=== PATIENT | female | born 1985 | race African-American/Black ===

== ENCOUNTER 2017-01-22 17:28 | Emergency (ER) | payer SELFPAY ==
[2017-01-22 19:22] LABS: Bilirubin Negative (Negative); Blood, Urine Negative (Negative); Glucose, Urine (Dipstick) Negative (Negative); Ketone, Urine Negative (Negative); Nitrite Negative (Negative); Protein, Urine (Dipstick) Negative (Neg-Trace)
[2017-01-22 19:26] LABS: #Basophils 0.2 thou/uL (0.0-0.2); #Eosinphils 0.5 thou/uL (0.0-0.7); #Lymphocytes 3.4 thou/uL (1.20-3.40); #Monocytes 0.4 thou/uL (0.11-0.59); #Neutrophils 3.3 thou/uL (1.40-6.50); %Eosinophils 5.9 % (0.0-10.0); %Lymphocytes 43.9 % (21.0-51.0); %Monocytes 5.2 % (0.0-10.0); Hematocrit 43.5 % (36.0-47.0); Mean Platelet Volume 9.5 fL (7.4-10.4); Red Blood Cell (RBC) Count 4.98 mill/uL (4.20-5.40); White Blood Cell (WBC) Count 7.7 thou/uL (4.8-10.8)
[2017-01-22 19:31] LABS: Amphetamine Not Detected (NotDetected); Methadone Not Detected (NotDetected); Methamphetamine Not Detected (NotDetected)
[2017-01-22 19:48] LABS: ALT (SGPT) Less than 7 U/L (8-55); AST (SGOT) 12 U/L (5-34); Alkaline Phosphatase 55 U/L (40-150); Anion Gap 13 mmol/L (10-20); BUN (Urea Nitrogen) 6 mg/dL (7.0-18.7); Bilirubin, Total 0.8 mg/dL (0.2-1.2); Calc. Creatinine Clearance 0 mL/min (70-130); Calcium 9.1 mg/dL (7.8-10.44); Carbon Dioxide 23 mmol/L (22-29); Chloride 108 mmol/L (98-107); Estimated GFR-MDRD 87; Globulin 3.7 g/dL (2.4-3.5); Protein, Total 8.1 g/dL (6.0-8.3)
[2017-01-22 19:50] LABS: Acetaminophen Less than 6.0 mcg/mL (10.0-30.0); Salicylate Less than 8.0 mg/dL (15.0-30.0)
[2017-01-23] MEDS ORDERED: Ondansetron ODT 4 MG TAB ONE (00:13)
[2017-01-23] MEDS ORDERED: Acetaminophen 325 MG TAB ONE ×2 (02:12→15:27)
--- NOTE | 2017-03-11 15:00 | EKG ---
Test Reason : Blood Pressure : / mmHG Vent. Rate : 105 BPM Atrial Rate : 105 BPM P-R Int : 146 ms QRS Dur : 080 ms QT Int : 340 ms P-R-T Axes : 068 -01 023 degrees QTc Int : 449 ms Sinus tachycardia Otherwise normal ECG Confirmed by AARON ALVARADO, ANNI Mansfield ([id number]), order editor JOSE MATTHEW ([id number]) on 03/11/2017 2:59:46 PM Referred By: Confirmed By:ANNI WALKER MD
== END 2017-01-24 03:37 ==
LOC: ERS 17:28
DX: R45.851 Suicidal ideations (principal); R45.850 Homicidal ideations; F31.9 Bipolar disorder, unspecified; F17.210 Nicotine dependence, cigarettes, uncomplicated
CPT/HCPCS: 36415; 80053; 80306; 80307; 81003; 81025; 84443; 85025; 93005; Q0162

== ENCOUNTER 2017-12-25 11:34 | Emergency (ER) | payer MEDICAID, SELFPAY ==
[2017-12-25] MEDS ORDERED: Ondansetron ODT 8 MG TAB ONE (12:11)
[2017-12-25] MEDS ORDERED: Ondansetron ODT 4 MG TAB ONE (12:11)
[2017-12-25] MEDS ORDERED: cefTRIAXone\\ROCEPHIN 250 MG VIAL ONE (12:34)
[2017-12-25] MEDS ORDERED: Azithromycin 250 MG TAB ONE (12:34)
[2017-12-25] MEDS ORDERED: Lidocaine 1% (PF) 30 ML VIAL ONE (12:34)
[2017-12-25 12:46] LABS: Bilirubin Negative (Negative); Blood, Urine Negative (Negative); Clarity CLEAR (Clear); Glucose, Urine (Dipstick) Negative (Negative); Leukocyte Negative (Negative); Nitrite Negative (Negative); Protein, Urine (Dipstick) Negative (Neg-Trace); Specific Gravity, Urine 1.013 (1.002-1.036); Urobilinogen 0.2 mg/dL (0.2-1.0); pH, Urine 6.5 (5.0-9.0)
[2017-12-25 12:48] LABS: Pregnancy Test - Urine (BHCG) Negative (Negative); Pregu Control Background? CLEAR/WHITE (CLR/WHITE); Pregu Control Bar Appear? YES (CONTROL BAR); Specific Gravity 1.013 (1.002-1.036)
[2017-12-26 21:57] LABS: Chlamydia by PCR Not Detected (NotDetected); GC by PCR Not Detected (NotDetected)
== END 2017-12-25 13:09 | disposition home or self-care (01) ==
LOC: ERS 11:34
DX: T19.2XXA Foreign body in vulva and vagina, initial encounter (principal); N72 Inflammatory disease of cervix uteri; F17.210 Nicotine dependence, cigarettes, uncomplicated; F20.9 Schizophrenia, unspecified; F31.9 Bipolar disorder, unspecified; Z71.6 Tobacco abuse counseling
CPT/HCPCS: 81003; 81025; 87480; 87491; 87510; 87591; 87660; 96372; J0696; J2001; Q0162

== ENCOUNTER 2018-08-07 20:42 | Emergency (ER) | payer MEDICAID, SELFPAY ==
[2018-08-07] MEDS ORDERED: Acetaminophen 500 MG TAB ONE (20:53)
--- NOTE | 2018-08-07 21:41 | RAD ---
4 views left knee. HISTORY: Fall 2 months ago with left knee pain. AP, lateral and both oblique views left knee obtained. No evidence of fractures, subluxations or bony lesion seen. IMPRESSION: Normal 4 views left knee.
== END 2018-08-07 22:24 | disposition home or self-care (01) ==
LOC: ERS 20:42
DX: O99.89 Other specified diseases and conditions complicating pregnancy, childbirth and the puerperium (principal); M25.562 Pain in left knee; O99.331 Smoking (tobacco) complicating pregnancy, first trimester; F17.210 Nicotine dependence, cigarettes, uncomplicated

== ENCOUNTER 2018-09-28 22:46 | Emergency (ER) | payer MEDICAID, OTHER ==
[2018-09-29] MEDS ORDERED: Acetaminophen/Codeine 30-300mg Tablet PO PRN (02:24)
[2018-09-29] MEDS ORDERED: hydrALAZINE 20 MG/ML VIAL SLOW IVP PRN (02:35)
[2018-09-29] MEDS ORDERED: Acetaminophen/Codeine 30-300mg Tablet PO SCH (02:45)
== END 2018-09-28 23:23 | disposition home or self-care (01) ==
LOC: ERS 22:46
DX: O99.89 Other specified diseases and conditions complicating pregnancy, childbirth and the puerperium (principal); R60.0 Localized edema; O99.342 Other mental disorders complicating pregnancy, second trimester; F31.9 Bipolar disorder, unspecified; F20.9 Schizophrenia, unspecified; Z87.891 Personal history of nicotine dependence
CPT/HCPCS: 99283

== ENCOUNTER 2018-09-28 23:31 | Day surgery (SDC) | payer MEDICAID, OTHER ==
[2018-09-29 00:17] VITALS: BP 109/67; TEMP 97.9; BMI 31.8
[2018-09-29] MEDS ORDERED: Lidocaine Viscous Sol 2% 15 ml UD Cup SSP SCH (01:30)
[2018-09-29] MEDS ORDERED: hydrALAZINE 20 MG/ML VIAL SLOW IVP PRN (01:36)
[2018-09-29] MEDS ORDERED: Acetaminophen/Codeine 30-300mg Tablet PO SCH (02:00)
--- NOTE | 2018-09-29 03:32 | PDOC.FPRHP ---
- History of Present Illness Chief Complaint: Facial Pain, Feet Swelling History of Present Illness: The patient is a 33 y/o who is 24W by 1st trimester US who presents to the ED with a 3 day history of right-sided facial pain and a 1 month history of bilateral feet swelling. The patient states that the nature of her facial pain is difficult to describe, is a 10/10, is associated with chewing , does not radiate, is mildly relieved with ibuprofen, and is sporadic in nature. She admits that she has poor dentition and occasional malodorous breath , and that she has not seen a dentist for some time. The patient went on to state that her feet have been swollen with her previous pregnancies, but she believes that they are more swollen than normal and she thinks that they have been tingling at times. Her work requires her to stand for long periods at a time, and she admits that she is unable to elevate her feet periodically or wear compression stockings. The patient denies absent movement, vaginal bleeding or discharge, recent trauma, chest pain, fever, vomiting, vision changes, dysuria, and weight loss. - Allergies/Adverse Reactions Allergies Allergy/AdvReac Type Severity Reaction Status Date / Time No Known Drug Allergies Allergy Verified 09/29/18 00:04 - Home Medications Medication Instructions Recorded Confirmed Type Acetaminophen With Codeine 1 tablet PO Q6HR PRN #10 tablet 09/29/18 Rx [Tylenol with Codeine #3] Doxylamine Succinate/Vit B6 2 tablet PO HS 09/29/18 09/29/18 History [Jessee KENNEDY] Haloperidol Lactate [Haldol] 0.5 mg PO BID 09/29/18 09/29/18 History Mirtazapine 1 tab PO DAILY PRN 09/29/18 09/29/18 History Pnv73/Iron,Gluc/Folic/Dss/Dha 1 tab PO DAILY 09/29/18 09/29/18 History [Citranatal Assure Combo Pack] - History PMHx: Bipolar Disorder (Type Unspecified), Depression, Schizophrenia, Abnormal Pap Smears, and Hepatitis C PSHx: None FHx: Father (DM, Depression, PTSD) Social: The patient admits to a remote history of EtOH and IV drug abuse, but denies any recent EtOH, tobacco or drug abuse during this . - Review of Systems General: denies: fever/chills, weight/appetite/sleep changes, night sweats Eyes: denies: vision changes Respiratory: denies: cough, shortness of breath Cardiovascular: denies: chest pain Gastrointestinal: denies: vomiting, diarrhea, GI bleeding Genitourinary: denies: dysuria Musculoskeletal: reports: pain, swelling Neurological: denies: syncope, seizure Psychological: reports: depression - Vital signs BP: [113/56] HR: [92] RR: [17] Tmax: [] Pox: [100]% on [Room] Wt: [] - Physical Exam Constitutional: NAD, awake, alert and oriented, well developed HEENT: normocephalic and atraumatic, conjunctiva clear, no scleral icterus, grossly normal vision, grossly normal hearing, MMM, other (Poor dentition, no abscesses visible, broken upper, posterior molar) Neck: supple, FROM, trachea midline, no LAD, no thyromegaly Chest: no-tender to palpation, no lesions Heart: RRR, normal S1/S2, no murmurs/rubs/gallops, pulses present Lungs: CTAB, no respiratory distress, good air movement, no rales/rhonchi, no wheezing, no retractions -Abdomen: Abdomen size consistent with 24W . Musculoskeletal: normal structure, ROM grossly normal Neurological: no focal deficit, CN II-XII intact Skin: no jaundice Psychiatric: other (Flat affect) FMR H&P: A/P - Problem List (1) Intrauterine Status: Chronic Code(s): Z34.90 - ENCNTR FOR SUPRVSN OF NORMAL , UNSP , UNSP TRIMESTER (2) Facial pain Status: Acute (3) Bilateral swelling of feet Status: Chronic Code(s): M79.89 - OTHER SPECIFIED SOFT TISSUE DISORDERS - Plan 1. Intrauterine - heart tones in 140s, with moderate variability, no decelerations (Cat 1) -F/U with PNC, continue standard care -Schedule 2nd trimester US -Refrain from additional doses of ibuprofen 2. Right-Sided Facial Pain -Pain likely associated with cracked tooth, 2/2 to poor dentition -Tylenol #3 now, with Lidocaine SSP/SSW -Tylenol #3 1 tab PO Q6H for pain -F/U with dentist (appointment schedule for 10/04/18) -Tooth extraction likely required 3. Bilateral Foot Swelling -Sub-acute changes to feet, BP WNL, no changes to vision or new-onset WEINSTEIN -No obvious loss of function or gross neuropathy -Pre-Eclampsia unlikely -Recommend elevating feet periodically -Compression stocking FMR H&P: Upper Level - Plan Date/Time: 09/29/18 0915 I, [], have evaluated this patient and agree with findings/plan as outlined by manager internship resident. Pertinent changes/additions are listed here. Addendum - Attending - Attending Attestation Date/Time: 10/03/18 2625 I personally evaluated the patient and discussed the management with Dr. Dumont I agree with the History, Examination, Assessment and Plan documented above with any addition or exceptions noted below. Vital signs with in normal limits. No facial swelling/reddness. Pt has appt already in place with dentist. Will adress pain with tylenol 3 and topical lidocaine. PT on feet working during day. Pt counselled to use compression stockings to help improve swelling. Pt to f/u with PNC as scheduled.
== END 2018-09-29 02:35 | disposition home or self-care (01) ==
LOC: L&D/OP 23:31
PROVIDERS: ATTEND Obstetrics & Gynecology
DX: O99.89 Other specified diseases and conditions complicating pregnancy, childbirth and the puerperium (principal); R51 Headache; M79.89 Other specified soft tissue disorders; O99.342 Other mental disorders complicating pregnancy, second trimester; F32.9 Major depressive disorder, single episode, unspecified; F20.9 Schizophrenia, unspecified; Z3A.24 24 weeks gestation of pregnancy
CPT/HCPCS: 99282

== ENCOUNTER 2019-01-15 10:46 | Day surgery (SDC) | payer OTHER ==
[2019-01-15 11:27] VITALS: BMI 37.5
[2019-01-15 11:44] LABS: Amnisure Internal Control QC ACCEPTABLE (ACCEPTABLE)
[2019-01-15 11:52] LABS: Amnisure Test No Membranes Rupture (No Rupture)
[2019-01-15] MEDS ORDERED: hydrALAZINE 20 MG/ML VIAL SLOW IVP PRN (12:20)
--- NOTE | 2019-01-15 13:27 | PRG ---
DATE OF SERVICE: 01/15/2019 PRIMARY OB: Clinic. CHIEF COMPLAINT: Leakage of fluid. HISTORY OF PRESENT ILLNESS: The patient is a 33-year-old, G11, P7 female with an intrauterine at 36 weeks and 6 days, presenting to Labor and Delivery after experiencing some leakage of fluid. We will try and put her clothes on for work this morning. She says that she has not had any leaking since. Denies any contractions or vaginal bleeding. She denies any complications with this . The patient missed her last appointment at the clinic at the end of December. The patient denies any recent illness, fever, fall, headache, chest pain, shortness of breath, nausea, vomiting, diarrhea, constipation, any new rashes. She has had some hip pains from the . Denies any back pain. Denies any vaginal bleeding or change in her discharge. Denies any urinary urgency or frequency. PAST MEDICAL HISTORY: Includes bipolar disorder, depression, and hepatitis C. PAST SURGICAL HISTORY: She has had surgery on her left hand and she has had 2 elective abortions. ALLERGIES: NO KNOWN DRUG ALLERGIES. MEDICATIONS: 1. vitamins. 2. Haloperidol. 3. Mirtazapine. SOCIAL HISTORY: Denies drug, alcohol, or tobacco use. ALLERGIES: NO KNOWN DRUG ALLERGIES. OB LABS: GC and chlamydia were negative in August. Hepatitis B surface antigen negative in August. RPR negative in August. Blood type is O positive. Antibody screen is negative. Hepatitis C antibody reactive. HIV nonreactive in August. Hepatitis C RNA is nondetectable. REVIEW OF SYSTEMS: Per HPI. PHYSICAL EXAMINATION: VITAL SIGNS: Blood pressure is 102/54, pulse rate of 93, respiratory rate of 16 , and temperature 98.6. GENERAL: She appears to be in no acute distress. She is alert, oriented, cooperative, and pleasant to interact with. HEAD: Normocephalic and atraumatic. LUNGS: Clear to auscultation bilaterally. HEART: Has a regular rate and rhythm. ABDOMEN: Gravid and nontender. EXTREMITIES: Nontender and nonedematous. : Vulva without masses, lesions, or erythema. Vagina is moist. There is no visible pulling on speculum exam. Cervix was closed on digital exam. heart tracing shows a fetus at baseline in the 150s with moderate long- term variability, positive 15 x 15 accelerations, no decelerations. No contractions visible on the monitor. AmniSure test is negative. ASSESSMENT AND PLAN: The patient is a 33-year-old grand-multiparous female with an intrauterine at 36 weeks and 6 days with no evidence of rupture of membranes or labor at this time. The patient has been given labor precautions, has been counseled to make a followup appointment with clinic as soon as possible and to remind them that she needs her GBS test done. Job ID: [id number] [facility]
[2019-01-16] MEDS ORDERED: FLU VACC QS2019-20(6MOS UP)/PF 60 MCG/0.5 ML SYRINGE IM ONE (11:45)
== END 2019-01-15 12:28 | disposition home or self-care (01) ==
LOC: L&D/OP 10:46
PROVIDERS: ATTEND Obstetrics & Gynecology
DX: O99.89 Other specified diseases and conditions complicating pregnancy, childbirth and the puerperium (principal); N89.8 Other specified noninflammatory disorders of vagina; O99.343 Other mental disorders complicating pregnancy, third trimester; F32.9 Major depressive disorder, single episode, unspecified; Z3A.36 36 weeks gestation of pregnancy; Z79.899 Other long term (current) drug therapy
CPT/HCPCS: 84112; 99283

== ENCOUNTER 2019-02-06 19:30 | Inpatient (IN) | payer MEDICAID, OTHER ==
[2019-02-07 00:04] VITALS: BMI 36.8
[2019-02-07] MEDS ORDERED: Ondansetron PF 4 MG/2 ML Vial IVP PRN ×3 (00:15→22:55)
[2019-02-07] MEDS ORDERED: Penicillin G Potassium 5 MILL.UNITS in Sodium Chloride 0.9% 100 ML IVPB SCH (00:15)
[2019-02-07] MEDS ORDERED: Lidocaine 1% (PF) 30 ML VIAL SC PRN (00:15)
[2019-02-07] MEDS ORDERED: Promethazine HCl 25 MG/ML VIAL IM PRN (00:15)
[2019-02-07] MEDS ORDERED: hydrALAZINE 20 MG/ML VIAL SLOW IVP PRN ×2 (00:15→22:55)
[2019-02-07] MEDS: Lactated Ringer's 1,000 ML IV SCH ×4 (00:53→20:00)
[2019-02-07 01:05] LABS: Mean Corpuscular HGB CONC 35.5 g/dL (32.0-36.0); Mean Corpuscular Hemoglobin 29.9 pg (27.0-31.0); Mean Corpuscular Volume 84.1 fL (78.0-98.0); Mean Platelet Volume 9.5 fL (7.4-10.4); Platelet Count 198 thou/uL (130-400); RBC Distribution Width 12.5 % (11.5-14.5); Red Blood Cell (RBC) Count 3.69 mill/uL (4.20-5.40); White Blood Cell (WBC) Count 9.3 thou/uL (4.8-10.8)
--- NOTE | 2019-02-07 02:08 | PDOC.FPROB ---
FMR OB H&P: Medications - Current Home Medications: Medication Instructions Recorded Confirmed Type Haloperidol Lactate [Haldol] 0.5 mg PO BID 09/29/18 02/06/19 History Mirtazapine 1 tab PO DAILY PRN 09/29/18 02/06/19 History Pnv73/Iron,Gluc/Folic/Dss/Dha 1 tab PO DAILY 09/29/18 02/06/19 History [Citranatal Assure Combo Pack] Allergies/Adverse Reactions: Allergies Allergy/AdvReac Type Severity Reaction Status Date / Time No Known Drug Allergies Allergy Verified 02/06/19 23:54 FMR OB H&P: Vital Signs - Maternal Vital signs: Vital Signs - First Documented Temp Pulse Resp BP 98.1 F 88 18 108/68 02/06/19 23:52 02/06/19 23:52 02/06/19 23:52 02/06/19 23:52 FMR OB H&P: Results - Labs Lab results: Laboratory Results - last 24 hr 02/07/19 02/07/19 02/07/19 00:30 00:30 01:46 WBC 9.3 RBC 3.69 L Hgb 11.0 L Hct 31.1 L MCV 84.1 MCH 29.9 MCHC 35.5 RDW 12.5 Plt Count 198 MPV 9.5 Blood Type O POSITIVE O POSITIVE Antibody Screen NEGATIVE FMR OB H&P: A/P - Problem List (1) Hepatitis C Current Visit: Yes Status: Acute Code(s): B19.20 - UNSPECIFIED VIRAL HEPATITIS C WITHOUT HEPATIC COMA (2) Intrauterine Current Visit: No Status: Chronic Code(s): Z34.90 - ENCNTR FOR SUPRVSN OF NORMAL , UNSP, UNSP TRIMESTER Discussion: Date/Time: 02/07/19206 PCP: Jason KRAMER HPI: Patient comes in for elective term induction. States she has been feeling well as of late. R/B/A of induction discussed and patient is in agreement with plan. Patient states she has had mild brown d/c throughout the course of her and it is unchanged, denies pain, itching, or irritation. She affirms movement, denies cxns, ROM, bleeding. Denies WEINSTEIN, visual changes, SOB, or swelling. History: OB hx: Hep C, social discord, bipolar II depression, sickle trait PMH: as above PSH: L hand Meds: PNV, Haldol, iron , Zofran, mirtazapine All: NKDA Soc Hx: denies smoking, alcohol, drugs Fam Hx: denies downs, congenital defects GBS: positive Blood type: O+ Ab screen: neg HIV: neg RPR: neg Hep B: neg Rubella: immune GC/CT: neg PAP: NILM, HR HPV + REVIEW OF SYSTEMS: Gen: no fever, chills, or sweats Neuro: no numbness/tingling, no weakness, denies headache ENT: denies congestion Eyes: no visual changes Resp: denies cough, no production, no SOB, no wheeze Card: denies chest pain, no palpitations GI: denies nausea, vomiting, diarrhea : no dysuria, no hematuria Skin: no rash, no erythema Psych: denies hx anxiety/depression Vitals: T: 98.3 R: 18 BP: 108/68 P:78 at: 98% on RA PHYSICAL EXAMINATION: General: NAD, alert and oriented x3 HEENT: EOMI, normal sclera Neck: Supple. Full ROM. Heart/Cardiovascular System: RRR, Cap refill < 3 seconds, no rub, no murmur Lungs/Respiratory System: clear to auscultation bilaterally. No increased work of breathing. Room air. Abdomen/Gastro-Intestinal System: no abdominal tenderness, normal bowel sounds, Gravid Extremities: Warm extremities. No cyanosis or edema. Neuro: No gross deficits appreciated Psychiatry: Awake, Alert and cooperative with exam Skin: no lesions, no rashes Musculoskeletal: Full ROM A/P: This is a 33 yo here for elective term induction FHT: 130 baseline, mod variability, no decels, accels present [address]: irregular contractions # Term , Grand multip - GBS+, start penicillin - Initial check - Will plan to start pit in 2 hours to give some time for abx ppx - Plans for epidural # Bipolar II depression - Missed last 2 days Haldol. Denies depression, hallucinations, SI. - Follows with [facility] # Social discord - [facility], now has her own place through [facility] - None of her other children are living with her - Case management consult after delivery # HR HPV - Normal colpo per pt, - Follow up outpt # Hepatitis C - Viral load negative, risks of vertical transmission have been discussed with patient Addendum - Attending - Attending Attestation Date/Time: 02/07/19 3058 I personally evaluated the patient and discussed the management with Dr. Edgar Mederos on 02/06/2019 I agree with the History, Examination, Assessment and Plan documented above with any addition or exceptions noted below - 33 yo @ 40.0 weeks admitted for elective induction. Denies any ctx, LOF, VB; (+) FM. Afebrile VSS SVE 04/07/-3 [address] no ctx. A/P: 1) IUP@ 40.0 weeks GBS(+) - will start abx and in 2 hours start pitocin. 2) Grandmultiparity - monitor closely for PPH.
[2019-02-07 02:24] LABS: HBSAg Index 0.15 S/CO (0-0.99); Hep B Surf Ag Non-Reactive S/CO (NonReactive)
[2019-02-07 03:30] LABS: Syphilis Antibody Index 3.52 S/CO (<1.00 Non-Reactive)
[2019-02-07] MEDS: NS w/ Oxytocin 10 units 500 ML IV SCH ×2 (03:30→15:57)
[2019-02-07] MEDS: Penicillin G 2.5 MILL.units 2.5 MILL.UNITS in Premix Bag 1 BAG IVPB SCH ×4 (04:55→17:38)
--- NOTE | 2019-02-07 06:30 | PDOC.LDPN ---
Labor & Delivery Progress Note - Subjective Subjective: comfortable, painful contractions - Objective Vital signs reviewed and normal: yes General: NAD, resting, breathing through contractions Uterine fundus: non tender SVE: 0600 Dilation: 1 Effacement: 50% Station: -3 FHT: category 1, variability present [place] contractions every: 3-5 minutes - Assessment (1) Elective induction of labor planned Code(s): [id number] - Current Visit: Yes Status: Acute (2) Hepatitis C Code(s): B19.20 - UNSPECIFIED VIRAL HEPATITIS C WITHOUT HEPATIC COMA Current Visit: Yes Status: Acute Plan: continue plan of care, pitocin for augmentation -: Term , Grand multip - GBS+, received PCN ppx - Recheck %/-3 - Pitocin started at 0315 - Continue current plan of care. Consider balloon later this morning if still not progressing. - Plans for epidural See H&P for chronic medical problem management.
[2019-02-07 06:44] LABS: Syphilis Antibody INDETERMINATE (Nonreactive)
--- NOTE | 2019-02-07 08:13 | PDOC.LDPN ---
Labor & Delivery Progress Note - Subjective Subjective: comfortable - Objective Vital signs reviewed and normal: yes General: NAD, resting SVE: 50/-3 FHT: category 1 [place] contractions every: 4min - Assessment (1) Elective induction of labor planned Code(s): [id number] - Current Visit: Yes Status: Acute (2) Intrauterine Code(s): Z34.90 - ENCNTR FOR SUPRVSN OF NORMAL , UNSP, UNSP TRIMESTER Current Visit: No Status: Chronic Plan: continue plan of care, pitocin for augmentation -: Term , Grand multip - GBS+, received PCN ppx - Recheck 50%/-3 - Pitocin started at 0315, currently at 10, continue titrating up - Continue current plan of care. - Plans for epidural - at risk for PPH, will have hemorrhage cart in room at delivery as precaution See H&P for chronic medical problem management.
--- NOTE | 2019-02-07 12:08 | PDOC.LDPN ---
Labor & Delivery Progress Note - Subjective Subjective: comfortable - Objective Vital signs reviewed and normal: yes General: resting Uterine fundus: non tender SVE: 50/-2 FHT: category 1 [place] contractions every: 3-6 min - Assessment (1) Elective induction of labor planned Code(s): [id number] - Current Visit: Yes Status: Acute (2) Intrauterine Code(s): Z34.90 - ENCNTR FOR SUPRVSN OF NORMAL , UNSP, UNSP TRIMESTER Current Visit: No Status: Chronic -: Term , Grand multip - GBS+, received PCN ppx - Recheck %/-2 - Pitocin started at 0315, currently at 18 - Continue current plan of care. - Plans for epidural - at risk for PPH, will have hemorrhage cart in room at delivery as precaution See H&P for chronic medical problem management.
[2019-02-07] MEDS ORDERED: Fentanyl 4 mcg/Bup 0.1% Cadd 100 ML ONE (12:35)
[2019-02-07] MEDS ORDERED: Lactated Ringer's 500 ML IV PRN (16:23)
[2019-02-07] MEDS ORDERED: ePHEDrine/0.9% NaCl/PF SYRINGE 50 mg/10 ml SLOW IVP PRN (16:23)
[2019-02-07] MEDS ORDERED: diphenhydrAMINE 50 MG/ML VIAL IVP PRN (16:23)
[2019-02-07] MEDS ORDERED: Naloxone HCl 0.4 mg/ml Vial IVP PRN ×2 (16:23)
[2019-02-07] MEDS ORDERED: Communication Order-Pharmacy FS PRN (16:30)
--- NOTE | 2019-02-07 18:47 | PDOC.LDPN ---
Labor & Delivery Progress Note - Subjective Subjective: comfortable, no concerns - Objective Vital signs reviewed and normal: yes General: NAD, resting, other (has epidural) Uterine fundus: non tender SVE: 1845 Dilation: 6cm / 80% Station: -1 FHT: category 2, late decelerations, variability present [place] contractions every: 2-3 minutes Other exam findings: IUPC and hallman in place. - Assessment (1) Elective induction of labor planned Code(s): [id number] - Current Visit: Yes Status: Acute (2) Hepatitis C Code(s): B19.20 - UNSPECIFIED VIRAL HEPATITIS C WITHOUT HEPATIC COMA Current Visit: Yes Status: Acute Plan: continue plan of care, pitocin for augmentation -: Term , Grand multip - GBS+, received PCN ppx (5mill 0053, 2.5mill 1738 [02/07]) - Check at 1845: 6/80/-1 - Category 2 strip. Will change position and give 500mL bolus of NS. - Pitocin started at 0315, currently at 20 - Continue current plan of care. - Epidural is working well. - at risk for PPH, will have hemorrhage cart in room at delivery as precaution
[2019-02-07] MEDS ORDERED: Sodium Chloride 0.9% 500 ML IV SCH (19:30)
[2019-02-07] MEDS ORDERED: Methylergonovine 0.2 MG/ML VIAL ONE (20:31)
[2019-02-07] MEDS ORDERED: Carboprost 250 MCG/ML AMP ONE (20:32)
[2019-02-07] MEDS ORDERED: Misoprostol 200 MCG TAB ONE (20:32)
[2019-02-07] MEDS: NS / Oxytocin 40 units/1000ml 1,000 ML IV PRN ×2 (20:45→22:24)
--- NOTE | 2019-02-07 21:00 | PDOC.OPDEL ---
OB Operative/Delivery Note - Additional Findings/Plan Compilations/Other Findings: Vaginal Delivery Procedure note Delivering Physician: Dr. Sparks, Dr. Mederos Attending: Dr. Ron Procedure: Spontaneous Vaginal Delivery Anesthesia: epidural QBL: 118 ml Pre-op Diagnosis: 1. Term intrauterine 2. Bipolar II depression 3. Hepatitis C 4. GBS + Post-op Diagnosis: 1. Term intrauterine , delivered 2-3. same as above 4. GBS + adequately treated with PCN x 2, >4 hours before delivery. Indications: A 33y/o female , now , presents for elective IOL at 40.2wks gestation. Delivery Note: This is 33yo F @ 40.2wks who delivered a viable F infant at 2040 on 02/07/2019. Following an uneventful antepartum course, a vigorous F was delivered over an intact perineum in the occipitoanterior position. Anterior Shoulder and then remainder of the body delivered. Loose nuchal cord. The head was held down and mouth and nares were bulb suctioned. Cord clamped and cut and cord blood collected. Placenta delivered intact in the [place] presentation with a 3 vessel cord noted. Fundal massage was performed and the fundus was firm. The cervix and vagina were inspected and found to be free of lacerations, bilateral abrasions noted that were not actively bleeding. went to nursery in good condition for routine care. Apgars were 8 /9 at 1 & 5 minutes, respectively. Patient tolerated delivery well and went to after routine recovery/care. Post delivery plan: routine recovery Addendum - Attending - Attending Attestation Date/Time: 02/07/192126 I personally evaluated the patient and discussed the management with Dr. Sparks I agree with the History, Examination, Assessment and Plan documented above with any addition or exceptions noted below. I was present for the entire delivery and delivery of the placenta. Uncomplicated . Loose nuchal delivered through. Bilateral periuretheral abrasions that were hemostatic. QBL 118mL. Cytotec placed due to grand multiparity. Routine care for mom and baby.
[2019-02-07] MEDS ORDERED: Misoprostol 200 MCG TAB PR SCH (21:15)
[2019-02-07] MEDS ORDERED: Benzocaine-Menthol 82.5 ML CAN TOP PRN (22:55)
[2019-02-07] MEDS ORDERED: Misoprostol 200 MCG TAB VAG PRN (22:55)
[2019-02-07] MEDS ORDERED: Methylergonovine 0.2 MG/ML VIAL IM PRN (22:55)
[2019-02-07] MEDS ORDERED: Carboprost 250 MCG/ML AMP IM PRN (22:55)
[2019-02-07] MEDS ORDERED: Milk Of Magnesia 30 ML UDCUP PO PRN (22:55)
[2019-02-07] MEDS ORDERED: NS / Oxytocin 40 units/1000ml 1,000 ML IV SCH (22:55)
[2019-02-07] MEDS ORDERED: Bisacodyl 10 MG SUPP PR PRN (22:55)
[2019-02-07] MEDS ORDERED: Ibuprofen 800 MG TAB PO SCH (23:00)
[2019-02-07] MEDS ORDERED: Docusate Calcium (SURFAK) 240 MG CAP PO SCH (23:00)
--- NOTE | 2019-02-07 23:18 | PDOC.BPN ---
- Brief Progress Note 300ml out during recovery period Uterus firm and non-tender at umbilicus BP 116/75 pulse 75 Asymptomatic, no pain Ok to transfer to PP
[2019-02-08] MEDS: Ibuprofen 800 MG TAB PO SCH ×5 (01:14→22:43)
[2019-02-08] MEDS: Acetaminophen 325 MG TAB PO PRN ×3 (02:19→16:21)
[2019-02-08 05:32] LABS: #Eosinphils 0.1 thou/uL (0.0-0.7); #Lymphocytes 1.4 thou/uL (1.20-3.40); #Monocytes 0.8 thou/uL (0.11-0.59); #Neutrophils 8.2 thou/uL (1.40-6.50); %Basophils 0.2 % (0.0-1.0); %Eosinophils 1.3 % (0.0-10.0); %Lymphocytes 13.5 % (21.0-51.0); %Monocytes 7.1 % (0.0-10.0); %Neutrophils 77.8 % (42.0-75.0); Hemoglobin 10.7 g/dL (12.0-16.0); Mean Corpuscular HGB CONC 34.7 g/dL (32.0-36.0); Mean Corpuscular Hemoglobin 29.4 pg (27.0-31.0); Mean Corpuscular Volume 84.6 fL (78.0-98.0); Mean Platelet Volume 9.3 fL (7.4-10.4); Platelet Count 181 thou/uL (130-400); RBC Distribution Width 12.4 % (11.5-14.5); Red Blood Cell (RBC) Count 3.64 mill/uL (4.20-5.40); White Blood Cell (WBC) Count 10.5 thou/uL (4.8-10.8)
[2019-02-08] MEDS: Prenatal Vitamin 1 TAB PO SCH (07:52)
[2019-02-08] MEDS ORDERED: Mirtazapine 15 MG TAB PO PRN (07:53)
--- NOTE | 2019-02-08 07:53 | PDOC.PP ---
Post Progress Note Post Day #: 1 Subjective: Doing well with no complaints PO intake tolerated: yes Flatus: yes Ambulation: yes Vital Signs (12 hours) Temp Pulse Resp BP Pulse Ox 02/08/19 04:00 98.3 F 73 16 112/62 02/07/19 23:30 98.3 F 100 16 110/58 L 99 Weight Weight 106.594 kg - Physical Examination General: NAD Cardiovascular: no m/r/g, RRR Respiratory: clear to auscultation bilaterally, non-labored breathing Abdominal: no distention, appropriately TTP Fundus firm & at: umbilicus Skin: no rash Neurological: no gross focal deficits Psychiatric: A&Ox3, normal affect Result Diagrams: 02/08/19 05:16 Additional Labs: Post Labs Blood Type O POSITIVE 02/07/19 01:46 Hep Bs Antigen Non-Reactive S/CO (NonReactive) 02/07/19 00:30 (1) Elective induction of labor planned Code(s): [id number] - Status: Acute (2) Intrauterine Code(s): Z34.90 - ENCNTR FOR SUPRVSN OF NORMAL , UNSP, UNSP TRIMESTER Status: Chronic (3) Hepatitis C Code(s): B19.20 - UNSPECIFIED VIRAL HEPATITIS C WITHOUT HEPATIC COMA Status: Acute - Assessment/Plan This is a 33 yo s/p induced vaginal delivery Term , Grand multip A- Delivery unremarkable with no PPH though pt was at risk. Hemoglobin 11-> 10.7. Pt doing well P- routine PP care Bipolar II depression A- Missed last 3 days Haldol. Denies depression, hallucinations, SI. Follows with [facility]. Pt plans to formula feed. P- will restart Haldol Social discord A- [facility], now has her own place through [facility]. None of her other children are living with her P- Case mgmt consulted for dispo for baby etc. HR HPV -Normal colpo per pt, Follow up outpt Hepatitis C -Viral load negative, risks of vertical transmission have been discussed with patient Addendum - Attending - Attending Attestation Date/Time: 02/08/19 1034 I personally evaluated the patient and discussed the management with Dr. Rios I agree with the History, Examination, Assessment and Plan documented above with any addition or exceptions noted below. QBL so far 400 mL. Pain controlled. expectant management at this time. Likely D/ C tomorrow vs tuesday pending CM recs.
[2019-02-08] MEDS ORDERED: Adacel (T-DAP) 0.5 ML SYRINGE IM ONE (09:00)
[2019-02-08] MEDS: Ferrous Sulfate 325 MG TAB PO SCH ×2 (10:30→16:17)
[2019-02-08] MEDS: Docusate Calcium (SURFAK) 240 MG CAP PO SCH ×2 (10:30→21:24)
[2019-02-08] MEDS: Penicillin G 2.5 MILL.units 2.5 MILL.UNITS in Premix Bag 1 BAG IVPB SCH (14:33)
[2019-02-08] MEDS ORDERED: HYDROcodone/Acetaminophen 5/325 mg Tablet PO SCH (21:00)
--- NOTE | 2019-02-09 06:05 | PDOC.PP ---
Post Progress Note Post Day #: 2 Subjective: Pt notes some mild abdominal pain today. Reports minimal vaginal bleeding. Denies any headache, vision changes, or swelling. No events overnight. Saw case management yesterday. PO intake tolerated: yes Flatus: yes Ambulation: yes Vital Signs (12 hours) Temp Pulse Resp BP 02/09/19 04:40 98.4 F 84 18 119/77 02/09/19 00:09 97.9 F 72 18 108/62 02/08/19 19:35 98.1 F 97 18 121/74 Weight Weight 106.594 kg - Physical Examination General: NAD Cardiovascular: RRR Respiratory: clear to auscultation bilaterally, non-labored breathing Abdominal: + bowel sounds, no distention, appropriately TTP Skin: no rash Neurological: no gross focal deficits Psychiatric: A&Ox3, normal affect Result Diagrams: 02/08/19 05:16 Additional Labs: Post Labs Blood Type O POSITIVE 02/07/19 01:46 Hep Bs Antigen Non-Reactive S/CO (NonReactive) 02/07/19 00:30 (1) care following vaginal delivery Code(s): Z39.2 - ENCOUNTER FOR ROUTINE FOLLOW-UP Status: Acute (2) Hepatitis C Code(s): B19.20 - UNSPECIFIED VIRAL HEPATITIS C WITHOUT HEPATIC COMA Status: Acute - Assessment/Plan Term , Grand multip - Delivery unremarkable with no PPH though pt was at risk. Hemoglobin 11->10.7. Pt doing well - minimal lochia - routine pp care Bipolar II depression - Missed last 3 days Haldol [employer]. Denies depression, hallucinations, SI. Follows with [facility]. Pt plans to formula feed. - will restart Haldol Social discord - [facility], now has her own place through [facility]. None of her other children are living with her - Case mgmt consulted - saw pt yesterday and offered services, will see again today before DC HR HPV -Normal colpo per pt, Follow up outpt Hepatitis C -Viral load negative, risks of vertical transmission have been discussed with patient Dispo: Progressing well in period - likely DC later today. Baby billing pending this a.m. Addendum - Attending - Attending Attestation Date/Time: 02/09/19 1104 I personally evaluated the patient and discussed the management with Dr. Klocke I agree with the History, Examination, Assessment and Plan documented above with any addition or exceptions noted below. D/C today. f/u 2 wk PNC
[2019-02-09] MEDS: Ibuprofen 800 MG TAB PO SCH ×3 (06:23→14:49)
[2019-02-09] MEDS: Ferrous Sulfate 325 MG TAB PO SCH (07:56)
[2019-02-09] MEDS: Prenatal Vitamin 1 TAB PO SCH (07:56)
[2019-02-09] MEDS: Docusate Calcium (SURFAK) 240 MG CAP PO SCH (07:56)
[2019-02-09 08:24] VITALS: BP 127/77; TEMP 98.2
[2019-02-09] MEDS: Acetaminophen 325 MG TAB PO PRN (13:09)
[2019-02-09] MEDS ORDERED: Acetaminophen/Codeine 30-300mg Tablet PO SCH (15:45)
== END 2019-02-09 17:10 | disposition home or self-care (01) | DRG 806 ==
LOC: L&D 22:59 → 3SW 02-07 23:49
PROVIDERS: ADMIT Family Medicine; ATTEND Family Medicine
PROC: 10E0XZZ Delivery of Products of Conception, External Approach (ICD-10-PCS; principal; 2019-02-07)
PROC: 10907ZC Drainage of Amniotic Fluid, Therapeutic from Products of Conception, Via Natural or Artificial Opening (ICD-10-PCS; 2019-02-07)
PROC: 3E0P7VZ Introduction of Hormone into Female Reproductive, Via Natural or Artificial Opening (ICD-10-PCS; 2019-02-07)
PROC: 3E033VJ Introduction of Other Hormone into Peripheral Vein, Percutaneous Approach (ICD-10-PCS; 2019-02-07)
DX: O98.42 Viral hepatitis complicating childbirth (principal); F31.81 Bipolar II disorder; Z37.0 Single live birth; B17.10 Acute hepatitis C without hepatic coma; Z79.899 Other long term (current) drug therapy; O99.344 Other mental disorders complicating childbirth; O99.824 Streptococcus B carrier state complicating childbirth; O99.02 Anemia complicating childbirth; D57.1 Sickle-cell disease without crisis; Z73.5 Social role conflict, not elsewhere classified; Z3A.40 40 weeks gestation of pregnancy
CPT/HCPCS: 36415; 36416; 51702; 85025; 85027; 86593; 86780; 86850; 86900; 86901; 87340; J2210; J2540; J2590; J3490

== ENCOUNTER 2019-06-02 09:48 | Emergency (ER) | payer OTHER, SELFPAY ==
[2019-06-02] MEDS ORDERED: Ibuprofen 200 MG TAB ONE (10:23)
== END 2019-06-02 11:25 | disposition home or self-care (01) ==
LOC: ERS 09:48
DX: J02.9 Acute pharyngitis, unspecified (principal); F31.9 Bipolar disorder, unspecified; F20.9 Schizophrenia, unspecified; Z87.891 Personal history of nicotine dependence
CPT/HCPCS: 87081; 87430; 94640

== ENCOUNTER 2019-09-29 18:52 | Emergency (ER) | payer SELFPAY ==
[~2019-09-29 18:52] MED LIST: Iopamidol-370 76% 500 ML 1 ML ONE
[2019-09-29] MEDS ORDERED: Ketorolac Tromethamine 30 MG/ML VIAL ONE (19:16)
--- NOTE | 2019-09-29 19:29 | RAD ---
PORTABLE CHEST: 09/29/19 HISTORY: Shortness of breath. Pleuritic pain. Lung kramer are clear. The heart and mediastinum appear normal. Vascular markings are normal. IMPRESSION: Negative portable chest. POS: AGW
[2019-09-29 19:41] LABS: Hemoglobin 13.1 g/dL (12.0-16.0); Mean Corpuscular HGB CONC 35.5 g/dL (32.0-36.0); Mean Corpuscular Volume 87.4 fL (78.0-98.0); Mean Platelet Volume 8.7 fL (7.4-10.4); Platelet Count 352 thou/uL (130-400); RBC Distribution Width 13.3 % (11.5-14.5); Red Blood Cell (RBC) Count 4.23 mill/uL (4.20-5.40)
[2019-09-29 20:00] LABS: ALT (SGPT) 147 U/L (8-55); AST (SGOT) 161 U/L (5-34); Albumin 3.6 g/dL (3.5-5.0); Alkaline Phosphatase 97 U/L (40-110); Anion Gap 15 mmol/L (10-20); BUN (Urea Nitrogen) 11 mg/dL (7.0-18.7); Bilirubin, Total 0.4 mg/dL (0.2-1.2); CK (CPK) 64 U/L (29-168); Calc. Creatinine Clearance 0 mL/min (70-130); Carbon Dioxide 20 mmol/L (22-29); Chloride 105 mmol/L (98-107); Estimated GFR-MDRD 74; Globulin 3.1 g/dL (2.4-3.5); Glucose 82 mg/dL (70-105); Lipase 137 U/L (8-78); Potassium 4.4 mmol/L (3.5-5.1); Protein, Total 6.7 g/dL (6.0-8.3); Sodium 136 mmol/L (136-145)
[2019-09-29 20:02] LABS: Band 8 % (5-11); Eosinophils 1 % (0-10); Lymphocytes 43 % (21-51); MDiff Complete? YES; Monocytes 8 % (0-10); Neutrophil 35 % (42-75); Platelet Morphology Comment Appears Adequate; Polychromasia SLIGHT = 2-3 cells (100X) (0-2/hpf); Reactive Lymphocytes 4 % (0-10)
[2019-09-29 20:07] LABS: BHCG - Serum Negative (NEGATIVE); Pregs Control Background? CLEAR/WHITE (CLR/WHITE); Pregs Control Bar Appear? YES (CONTROL BAR)
--- NOTE | 2019-09-29 22:01 | CT ---
CTA CHEST WITH CONTRAST: 09/30/19 Axial tomograms obtained with multiplanar reconstruction and 3D postprocessing. INDICATIONS: Chest pain, tachycardia. FINDINGS: Pulmonary arteries show adequate enhancement. There is no evidence of pulmonary embolus. Thoracic aorta unremarkable. Mediastinum unremarkable. Lung kramer appear clear. Upper abdomen unremarkable. Osseous structures unremarkable. IMPRESSION: 1. No evidence of pulmonary embolus. 2. No acute lung process. POS: AGW
== END 2019-09-29 22:11 | disposition home or self-care (01) ==
LOC: ERS 18:52
DX: R07.9 Chest pain, unspecified (principal); F41.9 Anxiety disorder, unspecified; F31.9 Bipolar disorder, unspecified; F20.9 Schizophrenia, unspecified; Z87.891 Personal history of nicotine dependence; Z79.899 Other long term (current) drug therapy
CPT/HCPCS: 71045; 71275; 80053; 82550; 83690; 84484; 84703; 85025; 85379; 93005; 96361; 96374; J1885; Q9967

== ENCOUNTER 2019-10-14 22:58 | Emergency (ER) | payer SELFPAY ==
[2019-10-14] MEDS ORDERED: Bupivacaine 0.5% 10 ML VIAL ONE (23:22)
[2019-10-14] MEDS ORDERED: Bacitracin 1 PK ONE (23:22)
[2019-10-14] MEDS ORDERED: Cephalexin 250 MG CAP ONE (23:22)
--- NOTE | 2019-10-14 23:35 | RAD ---
EXAM: 3 views of the right small finger HISTORY: Laceration to the small finger COMPARISON: None FINDINGS: There is no evidence of acute fracture or dislocation. No soft tissue swelling is seen. The re is a laceration near the PIP joint without radiopaque foreign body. No degenerative changes are present. IMPRESSION: No evidence of acute osseous abnormality.
== END 2019-10-15 00:59 ==
LOC: ERS 22:58
DX: S61.216A Laceration without foreign body of right little finger without damage to nail, initial encounter (principal); F31.9 Bipolar disorder, unspecified; F20.9 Schizophrenia, unspecified; Z87.891 Personal history of nicotine dependence; Z79.01 Long term (current) use of anticoagulants; Z79.899 Other long term (current) drug therapy; X99.1XXA Assault by knife, initial encounter
CPT/HCPCS: 12001; J3490

== ENCOUNTER 2023-08-30 16:30 | Emergency (ER) | payer BC, SELFPAY ==
[~2023-08-30 16:30] MED LIST changes: -Iopamidol-370 76% 500 ML 1 ML ONE; +Iopamidol-370 76% 500 ML MDV (1 ML CHARGE) ONE
[2023-08-30] MEDS ORDERED: diphenhydrAMINE 50 MG/ML VIAL ONE (18:46)
[2023-08-30] MEDS ORDERED: methylPREDNISolone Sod Succ 40 MG VIAL ONE (18:46)
[2023-08-30] MEDS ORDERED: Famotidine/PF 20 mg/2ml Vial ONE (18:46)
[2023-08-30] MEDS ORDERED: Aspirin Chewable 81 MG TAB ONE (18:47)
[2023-08-30 20:25] LABS: Bacteria/HPF None Seen HPF (None Seen); Bilirubin Negative (Negative); Blood, Urine Negative (Negative); CAUTI Indications for Culture Alt mental st,lethar; Clarity Clear (Clear); Glucose, Urine (Dipstick) Normal (Negative); Ketone, Urine Negative (Negative); Leukocyte Negative Leu/uL (Negative); Nitrite Negative (Negative); Protein, Urine (Dipstick) Negative (Neg-Trace); RBC/HPF 0-3 HPF (0-3); Specific Gravity, Urine 1.012 (1.002-1.036); Squamous Epithelial 0-3 HPF (0-3); Urobilinogen Normal mg/dL (Less than 2); WBC/HPF 0-3 HPF (0-3); pH, Urine 5.5 (5.0-9.0)
[2023-08-30] MEDS ORDERED: Acetaminophen 500 MG TAB ONE (20:29)
[2023-08-30 20:35] LABS: Urine Culture Reflex No No
[2023-08-30 20:46] LABS: Actual Bicarbonate (HCO3v) 22.2 mEq/L (22-28); Calcium, Ionized (venous) 1.15 mmol/L (1.16-1.32); Chloride (VBG) 106 mmol/L (98-106); Hematocrit-VBG 35 % (36.0-47.0); Potassium (VBG) 4.27 mmol/L (3.70-5.30); Sodium 138 mmol/L (133-146)
[2023-08-30 21:03] LABS: #Basophils 0.03 10x3/uL (0.0-0.2); %Basophils 0.5 % (0.0-1.0); %Eosinophils 2.1 % (0.0-10.0); %Lymphocytes 20.7 % (21.0-51.0); %Monocytes 4.8 % (0.0-10.0); %Neutrophils 71.6 % (42.0-75.0); Hematocrit 33.1 % (36.0-47.0); Hemoglobin 11.2 g/dL (12.0-16.0); Mean Corpuscular HGB CONC 33.8 g/dL (32.0-36.0); Mean Corpuscular Hemoglobin 29.1 pg (27.0-31.0); Mean Platelet Volume 11.8 fL (7.4-10.4); Platelet Count 295 10x3/uL (130-400); RBC Distribution Width 13.3 % (11.5-14.5); Red Blood Cell (RBC) Count 3.85 mill/uL (4.20-5.40)
[2023-08-30 21:19] LABS: BHCG - Serum Negative (NEGATIVE); Pregs Control Background? CLEAR/WHITE (CLR/WHITE); Pregs Control Bar Appear? YES (CONTROL BAR)
[2023-08-30 21:32] LABS: INR-International Normal Ratio 1.2; PTT 31.2 sec (22.9-36.1); Prothrombin Time 14.8 sec (12.0-14.7)
[2023-08-30 21:33] LABS: Phosphorus 2.9 mg/dL (2.3-4.7)
[2023-08-30 21:35] LABS: ALT (SGPT) 17 U/L (8-55); AST (SGOT) 20 U/L (5-34); Albumin 3.3 g/dL (3.5-5.0); Alkaline Phosphatase 59 U/L (40-110); Anion Gap 13 mmol/L (10-20); BUN (Urea Nitrogen) Less than 4 mg/dL (7.0-18.7); Bilirubin, Total 0.2 mg/dL (0.2-1.2); Calc. Creatinine Clearance 0 mL/min (70-130); Calcium 8.4 mg/dL (7.8-10.44); Carbon Dioxide 18 mmol/L (22-29); Chloride 108 mmol/L (98-107); Estimated GFR 114; Globulin 3.2 g/dL (2.4-3.5); Glucose 149 mg/dL (70-105); Magnesium 1.5 mg/dL (1.6-2.6); Potassium 4.1 mmol/L (3.5-5.1); Protein, Total 6.5 g/dL (6.0-8.3); Sodium 135 mmol/L (136-145)
[2023-08-30 21:38] LABS: Troponin I Less than 0.010 ng/mL (< 0.028)
[2023-08-30] MEDS ORDERED: Cephalexin 250 MG CAP ONE (21:42)
[2023-08-30] MEDS ORDERED: Morphine 4 MG/ML VIAL ONE (22:31)
[2023-08-30] MEDS ORDERED: Magnesium 2 GM/50 ML BAG (IN WATER) ONE (22:31)
[2023-08-30 22:55] LABS: Lipase Less than 4 U/L (8-78)
== END 2023-08-30 23:25 | disposition home or self-care (01) ==
LOC: ERS 16:30
DX: G45.9 Transient cerebral ischemic attack, unspecified (principal); E83.42 Hypomagnesemia; E11.65 Type 2 diabetes mellitus with hyperglycemia; N64.52 Nipple discharge; R20.2 Paresthesia of skin; F17.210 Nicotine dependence, cigarettes, uncomplicated
CPT/HCPCS: 36415; 70450; 70496; 70498; 71045; 80053; 81001; 82010; 82805; 83690; 83735; 84100; 84484; 84703; 85025; 85610; 85730; 93005; 94760; 96374; 96375; J1200; J2270; J2920; J3475; Q9967; S0028

== ENCOUNTER 2025-03-05 21:19 | Inpatient (IN) | payer OTHER ==
[2025-03-05] MEDS ORDERED: CEFAZOLIN 2 GM VIAL ONE (21:28)
[2025-03-05 21:39] LABS: #Basophils 0.09 10x3/uL (0.0-0.2); #Eosinophils 0.37 10x3/uL (0.0-0.7); #Monocytes 0.72 10x3/uL (0.11-0.59); #Neutrophils 2.26 10x3/uL (1.40-6.50); %Basophils 1.6 % (0.0-1.0); %Eosinophils 6.6 % (0.0-10.0); %Lymphocytes 38.3 % (21.0-51.0); %Monocytes 12.9 % (0.0-10.0); %Neutrophils 40.4 % (42.0-75.0); Hematocrit 36.3 % (36.0-47.0); Hemoglobin 12.1 g/dL (12.0-16.0); Mean Corpuscular Hemoglobin 27.2 pg (27.0-31.0); Mean Corpuscular Volume 81.6 fL (78.0-98.0); Platelet Count 327 10x3/uL (130-400); Red Blood Cell (RBC) Count 4.45 mill/uL (4.20-5.40); White Blood Cell (WBC) Count 5.59 10x3/uL (4.8-10.8)
[2025-03-05 21:49] LABS: INR-International Normal Ratio 1.3; PTT 33.1 sec (22.9-36.1); Prothrombin Time 16.6 sec (12.0-14.7)
[2025-03-05 21:50] LABS: ALT (SGPT) 14 U/L (Less than 34); AST (SGOT) 28 U/L (11-34); Albumin 3.8 g/dL (3.1-4.5); Alkaline Phosphatase 73 U/L (40-110); Anion Gap 16 mmol/L (10-20); BUN (Urea Nitrogen) 5 mg/dL (7.0-18.7); Bilirubin, Total 0.2 mg/dL (0.3-1.2); Calc. Creatinine Clearance 0 mL/min (70-130); Calcium 8.3 mg/dL (7.8-10.44); Carbon Dioxide 21 mmol/L (22-29); Chloride 106 mmol/L (98-107); Globulin 3.1 g/dL (2.4-3.5); Glucose 225 mg/dL (70-105); Lipase 4 U/L (8-78); Potassium 2.8 mmol/L (3.5-5.1); Sodium 140 mmol/L (136-145)
[2025-03-05] MEDS ORDERED: Bacitracin 1 PK ONE (22:22)
[2025-03-05] MEDS ORDERED: Glucagon 1 MG/ML KIT IM PRN (23:03)
[2025-03-05] MEDS ORDERED: hydrALAZINE 20 MG/ML VIAL SLOW IVP PRN (23:03)
[2025-03-05] MEDS ORDERED: Ondansetron PF 4 MG/2 ML Vial IVP PRN (23:03)
[2025-03-05] MEDS ORDERED: Dextrose 50% Abboject 50 ML SYRINGE SLOW IVP PRN (23:03)
[2025-03-05] MEDS ORDERED: Acetaminophen 500 MG TAB ONE (23:16)
[2025-03-06 03:03] VITALS: BMI 23.0
[2025-03-06 04:07] LABS: #Basophils 0.05 10x3/uL (0.0-0.2); #Eosinophils 0.39 10x3/uL (0.0-0.7); #Monocytes 0.79 10x3/uL (0.11-0.59); #Neutrophils 3.14 10x3/uL (1.40-6.50); %Basophils 0.8 % (0.0-1.0); %Eosinophils 6.0 % (0.0-10.0); %Lymphocytes 33.1 % (21.0-51.0); %Monocytes 12.1 % (0.0-10.0); %Neutrophils 47.8 % (42.0-75.0); Hematocrit 35.7 % (36.0-47.0); Hemoglobin 12.1 g/dL (12.0-16.0); Mean Corpuscular Hemoglobin 27.5 pg (27.0-31.0); Mean Corpuscular Volume 81.1 fL (78.0-98.0); Platelet Count 323 10x3/uL (130-400); Red Blood Cell (RBC) Count 4.40 mill/uL (4.20-5.40); White Blood Cell (WBC) Count 6.55 10x3/uL (4.8-10.8)
[2025-03-06 04:25] LABS: Anion Gap 12 mmol/L (10-20); BUN (Urea Nitrogen) Less than 4 mg/dL (7.0-18.7); Calc. Creatinine Clearance 130 mL/min (70-130); Calcium 8.6 mg/dL (7.8-10.44); Carbon Dioxide 23 mmol/L (22-29); Chloride 108 mmol/L (98-107); Glucose 147 mg/dL (70-105); Potassium 3.5 mmol/L (3.5-5.1); Sodium 139 mmol/L (136-145)
[2025-03-06] MEDS: Methocarbamol 500 MG TAB PO PRN (07:53)
[2025-03-06] MEDS: Senokot S 8.6-50 MG TAB PO SCH (10:23)
[2025-03-06] MEDS: Famotidine/PF 20 mg/2ml Vial SLOW IVP SCH (17:43)
[2025-03-06] MEDS: diphenhydrAMINE 50 MG/ML VIAL IVP SCH (17:43)
[2025-03-06] MEDS: Acetaminophen 325 MG TAB PO PRN (20:36)
[2025-03-07 04:06] LABS: #Basophils Less than 0.03 10x3/uL (0.0-0.2); #Eosinophils Less than 0.03 10x3/uL (0.0-0.7); #Monocytes 0.26 10x3/uL (0.11-0.59); #Neutrophils 3.61 10x3/uL (1.40-6.50); %Basophils 0.4 % (0.0-1.0); %Eosinophils 0.0 % (0.0-10.0); %Lymphocytes 21.1 % (21.0-51.0); %Monocytes 5.3 % (0.0-10.0); %Neutrophils 73.0 % (42.0-75.0); Hematocrit 38.0 % (36.0-47.0); Hemoglobin 12.7 g/dL (12.0-16.0); Mean Corpuscular Hemoglobin 27.6 pg (27.0-31.0); Mean Corpuscular Volume 82.6 fL (78.0-98.0); Platelet Count 344 10x3/uL (130-400); Red Blood Cell (RBC) Count 4.60 mill/uL (4.20-5.40); White Blood Cell (WBC) Count 4.94 10x3/uL (4.8-10.8)
[2025-03-07 04:23] LABS: Anion Gap 16 mmol/L (10-20); BUN (Urea Nitrogen) 7 mg/dL (7.0-18.7); Calc. Creatinine Clearance 112 mL/min (70-130); Calcium 9.1 mg/dL (7.8-10.44); Carbon Dioxide 21 mmol/L (22-29); Chloride 109 mmol/L (98-107); Glucose 217 mg/dL (70-105); Potassium 3.8 mmol/L (3.5-5.1); Sodium 142 mmol/L (136-145)
[2025-03-07] MEDS: FLU (Fluarix Triv) 25-26 (6MOS UP)/PF 45 MCG/0.5 ML Syringe IM ONE (10:07)
[2025-03-07] MEDS: Lactulose 20 GM (30 mL) UDCUP PO SCH (10:14)
[2025-03-07 15:30] VITALS: BP 146/92; TEMP 97.4
== END 2025-03-07 18:01 | disposition home or self-care (01) | DRG 87 ==
LOC: EEVIPCON 21:19 → ERS 21:19 → ERHOLD 23:03 → 2SE 03-06 02:30 → OBSVTOIN 03-06 16:13
PROVIDERS: ADMIT Surgery; ATTEND Surgery
DX: S06.2X1A Diffuse traumatic brain injury with loss of consciousness of 30 minutes or less, initial encounter (principal); W18.30XA Fall on same level, unspecified, initial encounter; I10 Essential (primary) hypertension; E11.9 Type 2 diabetes mellitus without complications; K21.9 Gastro-esophageal reflux disease without esophagitis; F31.9 Bipolar disorder, unspecified; F17.210 Nicotine dependence, cigarettes, uncomplicated; Z79.899 Other long term (current) drug therapy; Z98.890 Other specified postprocedural states; F20.9 Schizophrenia, unspecified; Z23 Encounter for immunization; R40.2412 Glasgow coma scale score 13-15, at arrival to emergency department
CPT/HCPCS: 36415; 36416; 70450; 70496; 70498; 71045; 72125; 80048; 80053; 80307; 83036; 83690; 85025; 85610; 85730; 86480; 86850; 86900; 86901; 90656; 90715; 93005; 94760; G0390; J1200; J1308; J1815; J2270; J2919; J7120